=== PATIENT | male | born 1985 | race Caucasian/White ===

== ENCOUNTER 2016-09-12 17:58 | Emergency (ER) | payer OTHER ==
--- NOTE | 2016-09-12 18:55 | DIAGNOSTIC IMAGING REPORT ---
PROCEDURE: XR CHEST 1 VIEW INDICATION: CHEST PAIN, initial encounter TECHNIQUE: Portable AP view 06:37 p.m. COMPARISON: None. FINDINGS: Lungs are clear. Heart and mediastinum are normal. Thorax is normal. IMPRESSION: 1. Negative chest.
--- NOTE | 2016-09-12 19:09 | ED NURSING NOTES ---
Clinical Report - Nurses [facility] [place] [place] [address] 09/12/2016 17:59 Patient: JUAN MANUEL LIAO TRIAGE Triage time 18:00. Acuity: LEVEL 3. Chief Complaint: CHEST PAIN. Alert. No acute distress. SEPSIS SCREEN: Sepsis Screen. Negative (no infection suspected/documented). Heart rate greater than 90. Temperature not greater than 38.3 degrees C (101 degrees F). Respiratory rate not greater than 20. --18:09 Juli Wiley R.N. 18:06 09/12/16. BP: 119/88. HR: 120. RR: 16. O2 saturation: 100%. Temp: 97.6 F. Pain level now 5/10. --18:09 Juli Wiley R.N. Weight: 90.7 kg stated. Height/Length: 72 inches Per Patient. BMI: 27.1. --18:06 Juli Wiley R.N. Medications None. --18:08 Juli Wiley R.N. Allergies No Known Drug Allergy. --18:08 Juli Wiley R.N. Medication/allergy information source: the patient. --18:09 Juli Wiley R.N. History Primary physician (no pcp). ( c/o on and off chest pain x 3 weeks and right sided abd pain. Clear to book. Used IV heroin just prior to arrival. States he was seen for a heart problem in [facility] ED in 2013 and is unable to state what it is. Began having chest pain again when arrested by PD). 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 SOCIAL HX: Heavy tobacco smoker (cigarette)- less than 1 pack per day. History of IV drug use: heroin, methamphetamines. Recently used drugs just prior to arrival. Under influence in ED. No alcohol use. FALL RISK ASSESSMENT: Fall risk assessment completed. No fall risk identified. NUTRITIONAL RISK ASSESSMENT: The nutritional risk assessment revealed no deficiencies. FUNCTIONAL ASSESSMENT: Functional assessment: no impairments noted. LEARNING NEEDS ASSESSMENT: The learning needs assessment revealed no barriers. SKIN INTEGRITY ASSESSMENT: Skin integrity risk assessment completed. No skin integrity risk identified. --18:09 Juli Wiley R.N. PROBLEMS: no known problems. ADDITIONAL SURGERIES: no known surgeries. Interventions ID band on patient. To treatment room. --18:09 Juli Wiley R.N. PHYSICAL ASSESSMENT 18:10 09/12/16. Ambulatory to room. GENERAL / NEURO / PSYCH: Alert. Oriented X 4. Appears in no acute distress. RESPIRATORY: Respirations not labored. CVS: Capillary refill less than 2 seconds. GI / : Abdomen soft. SKIN: Skin is warm and dry. --18:10 Juli Wiley R.N. NURSING PROGRESS NOTES EKG time: (1839). EKG was performed by a tech and shown to the ED physician. --18:47 Zack Kirk Care transferred and report received (Luis Miguel RN). --19:11 Sai Vanessa R.N. DISPOSITION / DISCHARGE Condition at departure: improved. The goals identified in the patient's plan of care were met. No learning barriers present. Discharge instructions provided and reviewed (police). Patient verbalized understanding. Written instructions provided in Welsh. The patient was discharged to police department facility and accompanied by a police escort. He left the Emergency Department ambulatory and via police department vehicle. Driving (police). FALL RISK ASSESSMENT: Fall risk assessment completed. No fall risk identified. --19:14 Sai Vanessa R.N. 19:13 09/12/16. BP: 115/73 taken on the right arm, via an automated monitor, while lying. HR: 97. RR: 16. O2 saturation: 99%. Temp: 98.2 F (oral). Pain level now: 0/10. --19:14 Sai Vanessa R.N. Departure time: 1915 PM. --19:16 Sai Vanessa R.N. Locked/Released at 09/12/2016 19:16 by Sai Vanessa R.N.
--- NOTE | 2016-09-12 19:09 | ED ORDER SUMMARY ---
..... Patient: JUAN MANUEL LIAO OrderSheet [facility] VisitID: [id number] [address] [place] [address] 30y, M Registration Date/Time: 09/12/2016 ORDER SHEET Weight: 90.7 kg (stated) Allergies: No Known Drug Allergy GENERAL ORDERS: Chest 1V Urgent (18:23 09/12/2016 Tu TREVIÑO) (18:42 Steven) EKG - ER Stat (18:23 09/12/2016 Tu TREVIÑO) (18:39 LTapper) MEDICATION ORDERS: IV FLUIDS: ORDER SHEET NOTES: [Electronically signed by Sai Vanessa R.N. (19:16 09/12/2016)] [Electronically signed by Kevin Hernandes MD (01:07 09/14/2016)] [Electronically locked/signed by Sai Vanessa R.N. (19:16 09/12/2016)]
--- NOTE | 2016-09-12 19:09 | ED NURSING NOTES ---
Clinical Report - Nurses [facility] [place] [address] 09/12/2016 17:59 Patient: JUAN MANUEL LIAO TRIAGE Triage time 18:00. Acuity: LEVEL 3. Chief Complaint: CHEST PAIN. Alert. No acute distress. SEPSIS SCREEN: Sepsis Screen. Negative (no infection suspected/documented). Heart rate greater than 90. Temperature not greater than 38.3 degrees C (101 degrees F). Respiratory rate not greater than 20. --18:09 Juli Wiley R.N. 18:06 09/12/16. BP: 119/88. HR: 120. RR: 16. O2 saturation: 100%. Temp: 97.6 F. Pain level now 5/10. --18:09 Juli Wiley R.N. Weight: 90.7 kg stated. Height/Length: 72 inches Per Patient. BMI: 27.1. --18:06 Juli Wiley R.N. Medications None. --18:08 Juli Wiley R.N. Allergies No Known Drug Allergy. --18:08 Juli Wiley R.N. Medication/allergy information source: the patient. --18:09 Juli Wiley R.N. History Primary physician (no pcp). ( c/o on and off chest pain x 3 weeks and right sided abd pain. Clear to book. Used IV heroin just prior to arrival. States he was seen for a heart problem in [facility] ED in 2013 and is unable to state what it is. Began having chest pain again when arrested by PD). 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 SOCIAL HX: Heavy tobacco smoker (cigarette)- less than 1 pack per day. History of IV drug use: heroin, methamphetamines. Recently used drugs just prior to arrival. Under influence in ED. No alcohol use. FALL RISK ASSESSMENT: Fall risk assessment completed. No fall risk identified. NUTRITIONAL RISK ASSESSMENT: The nutritional risk assessment revealed no deficiencies. FUNCTIONAL ASSESSMENT: Functional assessment: no impairments noted. LEARNING NEEDS ASSESSMENT: The learning needs assessment revealed no barriers. SKIN INTEGRITY ASSESSMENT: Skin integrity risk assessment completed. No skin integrity risk identified. --18:09 Juli Wiley R.N. PROBLEMS: no known problems. ADDITIONAL SURGERIES: no known surgeries. Interventions ID band on patient. To treatment room. --18:09 Juli Wiley R.N. PHYSICAL ASSESSMENT 18:10 09/12/16. Ambulatory to room. GENERAL / NEURO / PSYCH: Alert. Oriented X 4. Appears in no acute distress. RESPIRATORY: Respirations not labored. CVS: Capillary refill less than 2 seconds. GI / : Abdomen soft. SKIN: Skin is warm and dry. --18:10 Juli Wiley R.N. NURSING PROGRESS NOTES EKG time: (1839). EKG was performed by a tech and shown to the ED physician. --18:47 Zack Kirk Care transferred and report received (Luis Miguel RN). --19:11 Sai Vanessa R.N. DISPOSITION / DISCHARGE Condition at departure: improved. The goals identified in the patient's plan of care were met. No learning barriers present. Discharge instructions provided and reviewed (police). Patient verbalized understanding. Written instructions provided in Armenian. The patient was discharged to police department facility and accompanied by a police escort. He left the Emergency Department ambulatory and via police department vehicle. Driving (police). FALL RISK ASSESSMENT: Fall risk assessment completed. No fall risk identified. --19:14 Sai Vanessa R.N. 19:13 09/12/16. BP: 115/73 taken on the right arm, via an automated monitor, while lying. HR: 97. RR: 16. O2 saturation: 99%. Temp: 98.2 F (oral). Pain level now: 0/10. --19:14 Sai Vanessa R.N. Departure time: 1915 PM. --19:16 Sai Vanessa R.N. Locked/Released at 09/12/2016 19:16 by Sai Vanessa R.N.
--- NOTE | 2016-09-12 19:09 | ED CLINICAL REPORT ---
Clinical Report - Physicians/Mid Levels [facility] [address] [place] [address] 09/12/2016 17:59 Patient: JUAN MANUEL LIAO Time Seen: 18:14. HISTORY OF PRESENT ILLNESS Chief Complaint: CHEST PAIN. UPPER ABDOMINAL PAIN. This started weeks ago and years ago; L chest pain for years. Not changed 3 weeks of RUQ abdominal pain and is still present. It has been waxing/waning. At its maximum, severity described as mild. When seen in the E.D., severity described as mild. Modifying factors. Not worsened by anything. Not relieved by anything. Quality not described as dull. It is described as located in the central chest area and RUQ of the abdomen. No nausea, vomiting, difficulty breathing or diaphoresis. (No change in usual chest or abdominal pain. The patient is currently in custody of police.). Similar symptoms previously: Many times. REVIEW OF SYSTEMS No fever, chills, cough, sore throat or blurred vision. No black stools, difficulty with urination, skin rash or joint pain. PAST HISTORY PCP: None Ops: None Hosp: None Illness: Poly substance abuse. SOCIAL HISTORY History of drug use No recent pill: narcotics, heroin, methamphetamines. ADDITIONAL NOTES The nursing notes have been reviewed. PHYSICAL EXAM Vital Signs: 09/12/2016 19:13 BP: 115/73. HR: 97. RR: 16. O2 saturation: 99%. Temp: 98.2 F. Pain level now: 0/10. 09/12/2016 18:06 BP: 119/88. HR: 120. RR: 16. O2 saturation: 100%. Temp: 97.6 F. Appearance: Alert. No acute distress. Eyes: Eyes normal inspection. ENT: Pharynx normal. Neck: Normal inspection. Neck supple. CVS: Normal heart rate and rhythm. Heart sounds normal. Respiratory: No respiratory distress. Breath sounds normal. Chest nontender. Abdomen: Soft and nontender. Bowel sounds normal. Back: Normal external inspection. Skin: Skin warm. Normal skin color. No rash. Extremities: Extremities exhibit normal ROM. No lower extremity edema. Neuro: No alteration in mental status. (Sleepy but can engage in normal conversation). LABS, X-RAYS, AND EKG EKG: Normal EKG. Chest X-ray: (PROCEDURE: XR CHEST 1 VIEW INDICATION: CHEST PAIN, initial encounter TECHNIQUE: Portable AP view 06:37 p.m. COMPARISON: None. FINDINGS: Lungs are clear. Heart and mediastinum are normal. Thorax is normal. IMPRESSION: 1. Negative chest. Electronically Final signed by:Yusuf Mckenzie MD 09/12/2016 6:54:56 PM). The X-rays were interpreted by the radiologist and contemporaneously by me. PROGRESS AND PROCEDURES Course of Care: Pt does not have any of the 5 major causes of chest pain and does not have an acute surgical abdomen. If he worsens he will need to be re examined. Disposition: Discharged. Condition: stable. CLINICAL IMPRESSION Atypical chest pain INSTRUCTIONS (AT THIS TIME YOU DO NOT APPEAR TO HAVE A HEART PROBLEM YOU ARE ABLE TO BE BOOKED INTO ASSISTED BUT IF YOU DEVELOP A MAJOR CHANGE IN YOUR CHEST PAIN, DEVELOP A FEVER OR SIGNIFICANT SHORTNESS OF BREATH YOU WILL NEED TO BE RE EXAMINED.). Follow-up: Follow up with your doctor. Understanding of the discharge instructions verbalized by patient. (Electronically signed by Kevin Hernandes MD 09/14/2016 1:07)
--- NOTE | 2016-09-12 19:09 | ED CLINICAL REPORT ---
Clinical Report - Physicians/Mid Levels [facility] [address] [place] [address] 09/12/2016 17:59 Patient: JUAN MANUEL LIAO Time Seen: 18:14. HISTORY OF PRESENT ILLNESS Chief Complaint: CHEST PAIN. UPPER ABDOMINAL PAIN. This started weeks ago and years ago; L chest pain for years. Not changed 3 weeks of RUQ abdominal pain and is still present. It has been waxing/waning. At its maximum, severity described as mild. When seen in the E.D., severity described as mild. Modifying factors. Not worsened by anything. Not relieved by anything. Quality not described as dull. It is described as located in the central chest area and RUQ of the abdomen. No nausea, vomiting, difficulty breathing or diaphoresis. (No change in usual chest or abdominal pain. The patient is currently in custody of police.). Similar symptoms previously: Many times. REVIEW OF SYSTEMS No fever, chills, cough, sore throat or blurred vision. No black stools, difficulty with urination, skin rash or joint pain. PAST HISTORY PCP: None Ops: None Hosp: None Illness: Poly substance abuse. SOCIAL HISTORY History of drug use No recent pill: narcotics, heroin, methamphetamines. ADDITIONAL NOTES The nursing notes have been reviewed. PHYSICAL EXAM Vital Signs: 09/12/2016 19:13 BP: 115/73. HR: 97. RR: 16. O2 saturation: 99%. Temp: 98.2 F. Pain level now: 0/10. 09/12/2016 18:06 BP: 119/88. HR: 120. RR: 16. O2 saturation: 100%. Temp: 97.6 F. Appearance: Alert. No acute distress. Eyes: Eyes normal inspection. ENT: Pharynx normal. Neck: Normal inspection. Neck supple. CVS: Normal heart rate and rhythm. Heart sounds normal. Respiratory: No respiratory distress. Breath sounds normal. Chest nontender. Abdomen: Soft and nontender. Bowel sounds normal. Back: Normal external inspection. Skin: Skin warm. Normal skin color. No rash. Extremities: Extremities exhibit normal ROM. No lower extremity edema. Neuro: No alteration in mental status. (Sleepy but can engage in normal conversation). LABS, X-RAYS, AND EKG EKG: Normal EKG. Chest X-ray: (PROCEDURE: XR CHEST 1 VIEW INDICATION: CHEST PAIN, initial encounter TECHNIQUE: Portable AP view 06:37 p.m. COMPARISON: None. FINDINGS: Lungs are clear. Heart and mediastinum are normal. Thorax is normal. IMPRESSION: 1. Negative chest. Electronically Final signed by:Yusuf Mckenzie MD 09/12/2016 6:54:56 PM). The X-rays were interpreted by the radiologist and contemporaneously by me. PROGRESS AND PROCEDURES Course of Care: Pt does not have any of the 5 major causes of chest pain and does not have an acute surgical abdomen. If he worsens he will need to be re examined. Disposition: Discharged. Condition: stable. CLINICAL IMPRESSION Atypical chest pain INSTRUCTIONS (AT THIS TIME YOU DO NOT APPEAR TO HAVE A HEART PROBLEM YOU ARE ABLE TO BE BOOKED INTO SNF BUT IF YOU DEVELOP A MAJOR CHANGE IN YOUR CHEST PAIN, DEVELOP A FEVER OR SIGNIFICANT SHORTNESS OF BREATH YOU WILL NEED TO BE RE EXAMINED.). Follow-up: Follow up with your doctor. Understanding of the discharge instructions verbalized by patient. (Electronically signed by Kevin Hernandes MD 09/14/2016 1:07)
--- NOTE | 2016-09-12 19:09 | ED ORDER SUMMARY ---
..... Patient: JUAN MANUEL LIAO OrderSheet [facility] VisitID: [id number] [address] [place] [address] 30y, M Registration Date/Time: 09/12/2016 ORDER SHEET Weight: 90.7 kg (stated) Allergies: No Known Drug Allergy GENERAL ORDERS: Chest 1V Urgent (18:23 09/12/2016 Tu TREVIÑO) (18:42 Steven) EKG - ER Stat (18:23 09/12/2016 Tu TREVIÑO) (18:39 LTapper) MEDICATION ORDERS: IV FLUIDS: ORDER SHEET NOTES: [Electronically signed by Sai Vanessa R.N. (19:16 09/12/2016)] [Electronically signed by Kevin Hernandes MD (01:07 09/14/2016)] [Electronically locked/signed by Sai Vanessa R.N. (19:16 09/12/2016)]
--- NOTE | 2016-09-14 01:08 | ED DISCHARGE INSTRUCTIONS ---
Patient: JUAN MANUEL LIAO General Instructions [facility] VisitID: [id number] [place] [address] 30y, M Registration Date/Time: 09/12/2016 Atypical chest pain INSTRUCTIONS (AT THIS TIME YOU DO NOT APPEAR TO HAVE A HEART PROBLEM YOU ARE ABLE TO BE BOOKED INTO SENIOR LIVING BUT IF YOU DEVELOP A MAJOR CHANGE IN YOUR CHEST PAIN, DEVELOP A FEVER OR SIGNIFICANT SHORTNESS OF BREATH YOU WILL NEED TO BE RE EXAMINED.). Follow-up: Follow up with your doctor. Understanding of the discharge instructions verbalized by patient. ADDITIONAL INFORMATION Chest Pain, Noncardiac Based on your visit today, the exact cause of your chest pain is not certain. Your condition does not seem serious and your pain does not appear to be coming from your heart. However, sometimes the signs of a serious problem take more time to appear. Therefore, please watch for the warning signs listed below. Home Care: Rest today and avoid strenuous activity. Take any prescribed medicine as directed. Follow Up with your doctor or this facility as instructed or if you do not start to feel better within 24 hours. Get Prompt Medical Attention if any of the following occur: A change in the type of pain: if it feels different, becomes more severe, lasts longer, or begins to spread into your shoulder, arm, neck, jaw or back Shortness of breath or increased pain with breathing Cough with dark colored sputum (phlegm) or blood Weakness, dizziness, or fainting Fever of 100.4F (38C) or higher, or as directed by your healthcare provider Swelling, pain or redness in one leg You have been given the following additional information: Chest Pain, Noncardiac (Electronically signed by Kevin Hernandes MD 09/14/2016 1:07)
--- NOTE | 2016-09-14 01:08 | ED MAR SUMMARY ---
..... Medication Administration Record [facility] [address] [place], [place] [id number] Patient: JUAN MANUEL LIAO Visit ID: [id number] 30y, M Weight: 90.7 kg Height/Length: 72 in BMI: 27.1 ALLERGIES: No Known Drug Allergy
--- NOTE | 2016-09-14 01:08 | ED MED RECONCILIATION SUMMARY ---
Patient: JUAN MANUEL LIAO SYED MARTIN Medication Reconciliation Report [facility] VisitID: [id number] [address] [place] [place] [address] 30y, M Registration Date/Time: 09/12/2016 Weight: 90.7 kg Height/Length: 72 in. BMI: 27.1 ALLERGIES: No Known Drug Allergy The patient's Home Medications are listed below: NONE. The source(s) of the original Home Medication information: patient The following Medications were given to the patient in the Emergency Department: None. The following Medications were prescribed to the patient: None.
--- NOTE | 2016-09-14 01:08 | ED MED RECONCILIATION SUMMARY ---
Patient: JUAN MANUEL LIAO SYED MARTIN Medication Reconciliation Report [facility] VisitID: [id number] [address] [place] [place] [address] 30y, M Registration Date/Time: 09/12/2016 Weight: 90.7 kg Height/Length: 72 in. BMI: 27.1 ALLERGIES: No Known Drug Allergy The patient's Home Medications are listed below: NONE. The source(s) of the original Home Medication information: patient The following Medications were given to the patient in the Emergency Department: None. The following Medications were prescribed to the patient: None.
--- NOTE | 2016-09-14 01:08 | ED DISCHARGE INSTRUCTIONS ---
Patient: JUAN MANUEL LIAO General Instructions [facility] VisitID: [id number] [place] [address] 30y, M Registration Date/Time: 09/12/2016 Atypical chest pain INSTRUCTIONS (AT THIS TIME YOU DO NOT APPEAR TO HAVE A HEART PROBLEM YOU ARE ABLE TO BE BOOKED INTO PRISON BUT IF YOU DEVELOP A MAJOR CHANGE IN YOUR CHEST PAIN, DEVELOP A FEVER OR SIGNIFICANT SHORTNESS OF BREATH YOU WILL NEED TO BE RE EXAMINED.). Follow-up: Follow up with your doctor. Understanding of the discharge instructions verbalized by patient. ADDITIONAL INFORMATION Chest Pain, Noncardiac Based on your visit today, the exact cause of your chest pain is not certain. Your condition does not seem serious and your pain does not appear to be coming from your heart. However, sometimes the signs of a serious problem take more time to appear. Therefore, please watch for the warning signs listed below. Home Care: Rest today and avoid strenuous activity. Take any prescribed medicine as directed. Follow Up with your doctor or this facility as instructed or if you do not start to feel better within 24 hours. Get Prompt Medical Attention if any of the following occur: A change in the type of pain: if it feels different, becomes more severe, lasts longer, or begins to spread into your shoulder, arm, neck, jaw or back Shortness of breath or increased pain with breathing Cough with dark colored sputum (phlegm) or blood Weakness, dizziness, or fainting Fever of 100.4F (38C) or higher, or as directed by your healthcare provider Swelling, pain or redness in one leg You have been given the following additional information: Chest Pain, Noncardiac (Electronically signed by Kevin Hernandes MD 09/14/2016 1:07)
--- NOTE | 2016-09-14 01:08 | ED MAR SUMMARY ---
..... Medication Administration Record [facility] [address] [place], [place] [id number] Patient: JUAN MANUEL LIAO Visit ID: [id number] 30y, M Weight: 90.7 kg Height/Length: 72 in BMI: 27.1 ALLERGIES: No Known Drug Allergy
== END 2016-09-12 19:15 ==
LOC: ED SRH 17:58
DX: R07.89 Other chest pain (principal); F17.210 Nicotine dependence, cigarettes, uncomplicated; F15.10 Other stimulant abuse, uncomplicated